=== PATIENT | female | born 1965 | race Caucasian/White ===

== ENCOUNTER 2019-08-05 08:15 | Outpatient (CLI) | payer SELFPAY ==
--- NOTE | 2019-08-05 08:25 | CT_ITS ---
WS: [id number] CT ABDOMEN AND PELVIS WITH CONTRAST HISTORY: COLON CANCER, partial LEFT hemicolectomy. TECHNIQUE: Imaging performed of the abdomen and pelvis with IV contrast. Single phase imaging of the abdomen. Coronal and sagittal reformats are submitted. All CT scans at [facility] use at least one of these dose optimization techniques: automated exposure control; mA and/or kV adjustment per patient size (includes targeted exams where dose is matched to clinical indication); or iterativ e reconstruction. IV CONTRAST: Omnipaque 300; 95 mL IV. Oral contrast: Yes. DLP: 543.49 mGy.cm COMPARISON: 07/28/2018 and 12/20/2017 Lower thorax: Lung bases are clear. Heart is normal size. No hiatal hernia. Liver/biliary system: Normal size with no intrahepatic dilatation. Gallbladder: Normal. No gallstones or wall thickening. No pericholecystic fluid. Pancreas: Normal. Spleen: Normal size spleen with granulomata. Adrenal glands: Normal. Right kidney: Normal. Left kidney: Normal. Aorta: Mild atherosclerosis with no aneurysm. Lymphadenopathy: None. Free fluid: None. GI tract: The appendix is not visualized. Moderate site in the distal colon with no adjacent or recurrent neoplasm. No soft tissue mass or mark opathy. There is moderate fecal retention throughout the colon. No obstruction. Abdominal wall: Fat-containing umbilical hernia. Pelvis: Negative appearing uterus and bladder. No adnexal masses. Bones: Mild increase in lumbar lordosis. Degenerative disc disease is moderate at L5-S1. No osteoblas tic or osteolytic bone disease. CT/CT abdomen pelvis w con* [id number] IMPRESSION: 1. Sigmoid anastomosis and partial LEFT hemicolectomy are stable. No recurrent mass or adenopathy. 2. No metastatic disease to the liver or adrenal glands. 3. Mild constipation.
[2019-08-05] MEDS: iohexol 300 mg/mL 50 mL Btl PO (08:33)
[2019-08-05] MEDS: iohexol 300 mg/mL 100 mL Btl IV (10:15)
== END 2019-08-05 08:16 | disposition home or self-care (01) ==
LOC: RAD 08:20
PROVIDERS: Family Provider Nurse Practitioner Family; PCP Nurse Practitioner Family; Visit Provider Nurse Practitioner Family
DX: Z85.038 Personal history of other malignant neoplasm of large intestine (principal); K59.00 Constipation, unspecified
CPT/HCPCS: 74177

== ENCOUNTER 2019-09-09 14:04 | Outpatient (CLI) | payer SELFPAY ==
--- NOTE | 2019-09-13 14:30 | ONC FU_ITS ---
Dr. Chavez Patient Follow-Up Note Patient: Allyson Barney Unit #: [id number]: 1965 Dicatated By: Taco Chavez M.D.Date of Visit:Sep 09, 2019 Onc Med Follow-up/Prog Note Chief Complaint: Colon cancer. 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 She had presented in 2014 with a several month history of increasing pain in the left lower quadrant area. She had then become aware of some blood in the stool. Eventually the pain became severe enough that she presented to the emergency room, and she was found on CT scan of the abdomen/pelvis to have an obstructing mass in the mid to proximal sigmoid colon. There appeared to be impending large bowel obstruction. The CT also reported presence of associated left lower quadrant pericolonic mesenteric lymph nodes and mildly enlarged inguinal lymph nodes, and there also was evidence of chronic emphysema. She was admitted to the hospital and on 04/20/2015 she underwent sigmoidoscopy followed by open sigmoid colectomy with [id number] colorectal anastomosis. The sigmoidoscopy did confirm an obstructing mass. At laparotomy there was no obvious metastatic involvement. The tumor was able to be resected with no complications. Pathology showed low-grade (grade 1-2/4) infiltrating adenocarcinoma. The tumor was noted to penetrate into but not through the muscularis propria. It measured 5.7 x 3.5 x 1.4 cm. It did show evidence of lymphovascular space invasion. There was no involvement and 14 pericolonic lymph nodes. The portion of resected colon also included an adenomatous polyp measuring 0.8 cm. I had seen her for a post hospital visit on 05/28/2015. She still had somewhat marginal performance status, but she did appear to be recovering from the surgery. With stage I disease, there was no indication for adjuvant therapy. As such, she was followed on observation/expectant management. Surveillance colonoscopy on 08/11/2016 showed no abnormal findings. I had seen her for a follow-up visit on 08/22/2016. At that point she appeared stable clinically, but thereafter she failed to return for follow-up. Her other medical illnesses include COPD, chronic anxiety, and a history of hypoglycemia. She has a history of smoking a half pack of cigarettes daily. She has cut down to 1-2 cigarettes per day. She also has a history of methamphetamine abuse. INTERIM HISTORY: On 07/28/2018 she was admitted to the hospital with suspected bowel obstruction. Her CT abdomen/pelvis at that time showed dilated fluid-filled loops of small bowel, mainly ileum, suspicious for small bowel obstruction. There was a suspected transition point in the left midabdomen. There was new mild intrahepatic biliary ductal dilatation, but there was no obvious metastatic disease. She underwent exploratory laparotomy with lysis of adhesions, resection of Meckel's diverticulum, and incidental appendectomy. The obstruction did appear to be due to adhesions, one side of which was in the area of the previous anastomosis. The other side was more in the mid abdominal area and was associated with the bowel being significantly kinked. There was no evidence of malignancy, and she had an uneventful postoperative recovery. I had then seen her for a follow-up visit on 04/30/2019. She was complaining of significant abdominal pain and constipation, and she was not feeling good generally. I had recommended a restaging CT abdomen/pelvis. That study did not get completed until 08/05/2019. It showed evidence of partial left hemicolectomy with sigmoid anastomosis. There was no recurrent mass or adenopathy and no evidence of other metastatic disease. She was noted to have mild constipation. With those findings, she was treated symptomatically. She continued observation/expectant management for the colon cancer. She is seen for a follow-up visit. She still complains that her energy is very bad. She says that all she wants to do is sleep. She is working a production supervisor off shift, 3 days a week. She has good appetite. She has been gaining weight. She has not had fever. She has some hot flashes and sweating. She has no shortness of breath, cough, or chest pain. Her bowel function has been improved with probiotic. She still has some pain in the left abdominal area, but it is intermittent. She says her bladder function could be better, mainly due to frequent urination. She has no significant joint or bone pain. She occasionally has slight headache. She has no focal neurologic symptoms. Medications: Acetaminophen Capsule Oral PRN, Citalopram Hydrobromide 1 Tablet (of 40 mg) Oral daily, LORazepam 0.5 - 1 Tablet (of 0.5 mg) Oral b.i.d. PRN, Probiotic Capsule Oral Allergies: No Known Allergies. Review of Systems: Constitutional - Her energy level is bad. She states that all she feels like doing is sleeping. She is working 3 nights a week. Her appetite is good and weight is up about 7 pounds from last visit. No fever or chills. She has frequent hot flashes and sweating episodes both during the day and night. ECOG score is 1, ENMT - No sinus congestion/drainage. No mouth sores. No sore throat or difficulty swallowing, Hematologic/Lymphatic - No abnormal bruising or bleeding, Respiratory - No shortness of breath. No cough. No pleuritic pain or hemoptysis, Cardiovascular - No angina pain. No palpitations, Gastrointestinal - No nausea or vomiting. No heartburn or acid reflux. Her bowel function and abdominal pain have improved. No blood in the stool or black stools, Genitourinary (F) - No dysuria or hematuria. She has urinary frequency. No urgency or incontinence, Musculoskeletal - No joint or bone pain, Integumentary - No skin complications, Neurologic - She has occasional headaches. No dizziness. No numbness/paresthesias or other focal neurologic symptoms, Psychiatric - She is taking Ativan and Citalopram for anxiety, which has helped tremendously. No insomnia. Vital Signs: Performed on Sep 09, 2019 14:18 Height - 61.00 in Weight - 128.4 lbs (HIGH) BSA - 1.56 sq.m BMI - 24.26 Temperature - 97.8 F (LOW) Pulse - 58 /min (LOW) Respiration - 17 /min BP - 107/69 mm(hg) O2 Sat - 97 % Pain - 0 Physical Examination: Constitutional - She looks pretty good generally, Eyes - Sclerae nonicteric. Conjunctivae clear, ENMT - There are no lesions noted in the oral cavity, Hematologic/Lymphatic - No cervical, clavicular, or axillary adenopathy, Respiratory - Lungs are clear with some decrease in air movement bilaterally, Cardiovascular - Heart rhythm is regular. There is no murmur, gallop, or rub noted, Abdomen - Soft. Just below the umbilicus there appears to be an area of muscle weakness in the abdominal wall, but not severe enough to constitute an actual herniation. Liver and spleen are not enlarged. There is no abdominal mass or ascites noted. There is no inguinal adenopathy, Extremities - No edema, Neurologic - No focal neurologic deficits noted. Lab/Imaging: Test performed on May 01, 2019 08:57 Sodium 143 mmol/L Potassium 4.3 mmol/L Chloride 102 mmol/L CO2 28 mmol/L Anion Gap 17.3 BUN 21 mg/dL Creatinine 0.8 mg/dL Cr Clearance (Est) 68.3700 mL/min eGFR 74.2 mL/min Glucose 86 mg/dl Calcium 9.8 mg/dL Protein, Total 6.9 g/dL Albumin 5.2 g/dL Globulin 1.7 gm/dL Bilirubin, Total 0.4 mg/dL ALT (SGPT) 33 U/L AST (SGOT) 29 U/L Alkaline Phosphatase 74 U/L WBC 5.8 10 3/uL RBC 4.40 10 6/uL HGB 13.6 g/dl HCT 40.1 % MCV 91.2 fl MCH 30.9 pg MCHC 33.9 g/dl RDW 13.0 % Platelet Count 300 10 3/uL MPV 7.3 fl Neutrophils 3.9 10 3/cmm Lymphocytes 1.5 10 3/uL Monocytes 0.4 10 3/uL Neutrophil % 66.7 % Lymphocyte % 25.6 % Monocyte % 7.7 % CEA 2.0 ng/mL Impression: 1. 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 2. She underwent open sigmoid colectomy with [id number] colorectal anastomosis on 04/20/2015. Her other medical illnesses include: 3. COPD. 4. Chronic anxiety. 5. She has a history of substance abuse (methamphetamine), inactive. 6. She also has a history of hypoglycemia. She has been followed on observation/expectant management following the surgery in March 2015. As of her follow-up visit in 2016 she appeared stable clinically with no evidence of recurrence of the colon cancer. She was then lost to follow-up. In July 2018 she was admitted to the hospital with small bowel obstruction. She underwent exploratory laparotomy for lysis of adhesions, which was repaired cause for the obstruction. She also underwent resection of Meckel's diverticulum and incidental appendectomy. There was no evidence of malignancy. Repeat CT abdomen/pelvis on 08/05/2019 showed evidence of partial left hemicolectomy with sigmoid anastomosis. There was no recurrent mass or adenopathy and no evidence of other metastatic disease. She has been having significant abdominal pain and constipation, but that has improved with probiotic and other symptomatic measures. She continues to have significant fatigue/somnolence. Overall, though, she has been doing pretty well clinically, thus far with no evidence of recurrence of the colon cancer. Plan: She continues on observation/expectant management. I will just plan to see her for a follow-up visit in 1 year. In the meantime, I will check with Dr. Portillo in regard to her surveillance colonoscopy schedule. Signed By: Taco Chavez M.D. <<Signature on File>>
== END 2019-09-09 14:05 | disposition home or self-care (01) ==
PROVIDERS: Family Provider Nurse Practitioner Family; PCP Nurse Practitioner Family; Visit Provider Internal Medicine Medical Oncology
DX: Z08 Encounter for follow-up examination after completed treatment for malignant neoplasm (principal); Z85.038 Personal history of other malignant neoplasm of large intestine; J43.9 Emphysema, unspecified; F41.9 Anxiety disorder, unspecified; F17.210 Nicotine dependence, cigarettes, uncomplicated; F15.11 Other stimulant abuse, in remission; Z79.899 Other long term (current) drug therapy; Z90.49 Acquired absence of other specified parts of digestive tract
CPT/HCPCS: G0463

== ENCOUNTER → 2022-08-25 15:57 | Outpatient (BNVA) | payer SELFPAY | PROVIDERS: Family Provider Nurse Practitioner Family; PCP Nurse Practitioner Family; Visit Provider Nurse Practitioner Family | DX: R10.9 Unspecified abdominal pain (principal) | CPT/HCPCS: 81003 ==

== ENCOUNTER → 2022-08-31 09:11 | Outpatient (BNVA) | payer OTHER, SELFPAY | PROVIDERS: Family Provider Nurse Practitioner Family; PCP Nurse Practitioner Family; Visit Provider Nurse Practitioner Family | DX: R10.9 Unspecified abdominal pain (principal); I10 Essential (primary) hypertension | CPT/HCPCS: 80053; 80061; 82306; 82607; 83735; 85025 ==

== ENCOUNTER 2023-03-29 08:36 | Oncology outpatient (recurring) (ONCR) | payer SELFPAY ==
[2023-03-29 10:45] LABS: Basophils % 0.4 %; Eosinophils # 0.2 10^3/uL (0.0-0.8); Eosinophils % 2.4 %; Hematocrit 39.2 % (36-47); Lymphocytes # 2.2 10^3/uL (0.8-4.8); Lymphocytes % 27.9 %; Mean Corpuscular HGB Conc 33.2 g/dL (30-55); Mean Corpuscular Hemoglobin 29.3 pg (27-33); Mean Corpuscular Volume 88.3 fl (85-98); Mean Platelet Volume 8.3 fL (7.4-10.4); Monocytes # 0.6 10^3/uL (0.2-0.9); Monocytes % 8.1 %; Neutrophils # 4.73 10^3/uL (1.8-7.7); Neutrophils % 60.8 %; Nucleated Red Blood Cells % 0 %; Platelet Count 319 10^3/cmm (157-399); Red Blood Count 4.44 10^6/uL (3.85-5.65); White Blood Count 7.78 10^3/uL (3.29-11.43)
[2023-03-29 11:25] LABS: Carcinoembryonic Antigen 2.5 ng/mL (0.0-4.7)
[2023-03-29 11:36] LABS: Alanine Aminotransferase 28 U/L (0-33); Alkaline Phosphatase 80 U/L (35-105); Anion Gap 13.7 (5-19); Aspartate Amino Transferase 26 U/L (0-32); Blood Urea Nitrogen 14 mg/dL (6-20); Calcium 8.7 mg/dL (8.5-10.5); Carbon Dioxide 23 mmol/L (22-29); Chloride 104 mmol/L (98-107); Globulin 2.5 g/dL (1.3-4.6); Glomerular Filtration Rate 126.3 mL/min (90-130); Glucose 99 mg/dL (65-115); Osmolality Calculated 285 mOsm/kg (285-295); Potassium 3.7 mmol/L (3.5-5.1); Sodium 137 mmol/L (136-145); Total Bilirubin 0.2 mg/dL (0.15-1.2); Total Protein 6.5 g/dL (6.6-8.7)
== END 2023-04-25 23:59 | disposition home or self-care (01) ==
LOC: ONCMED 08:36
PROVIDERS: Family Provider Nurse Practitioner Family; PCP Nurse Practitioner Family; Visit Provider Internal Medicine Medical Oncology
DX: C18.9 Malignant neoplasm of colon, unspecified (principal)
CPT/HCPCS: 36415; 80053; 82378; 85025

== ENCOUNTER 2023-04-21 09:39 | Outpatient (CLI) | payer OTHER, SELFPAY ==
[2023-04-21] MEDS: iohexol 350 mg/mL 500 mL Btl (per mL) IV (09:47)
[2023-04-21] MEDS: iohexol 350 mg/mL 500 mL Btl (per mL) PO (09:47)
--- NOTE | 2023-04-21 11:00 | CT_ITS ---
WS: [id number] CT CHEST, ABDOMEN, AND PELVIS TECHNIQUE: Contrast-enhanced CT of the chest, abdomen, and pelvis with coronal and sagittal reformatt ed images. CLINICAL INFORMATION: Abdominal pain and swelling of abdomen with colon cancer COMPARISON: CT abdomen pelvis 08/05/2019 DLP: 443.[address] scans at [facility] use at least one of these dose optimization techniques: automated e xposure control; mA and/or kV adjustment per patient size (includes targeted exams where dose is matc hed to clinical indication); or iterative reconstruction. CT CHEST: Normal caliber thoracic aorta. Proximal main pulmonary arteries are normal. Normal caliber descending thoracic aorta. No mediastinal or hilar lymphadenopathy. No axillary lymphadenopathy. No acute pulmonary infiltrates. No suspicious pulmonary parenchymal abnormalities. Calcified granulom a RIGHT lower lobe. Mild thoracic curve.Tiny LEFT thyroid nodule measuring [address] ABDOMEN AND PELVIS: Prior postoperative changes partial LEFT hemicolectomy with sigmoid anastomosis. No evidence of recur rent mass or lesion at the anastomosis. No adenopathy in the abdomen or pelvis. Diffuse fatty infiltration of the liver. Mild hepatomegaly. Splenic granulomas. Normal GE junction. N ormal portal vein and splenic vein. Normal pancreas. Normal caliber abdominal aorta. Adrenal glands are normal. Normal renal parenchymal enhancement. No hydronephrosis. Tiny fat-containing umbilical hernia. Vacuum disc phenomenon at L5-S1. IMPRESSION: 1. No evidence of metastatic disease in the chest abdomen or pelvis. 2. No adenopathy in the chest abdomen or pelvis. 3. Prior postoperative changes LEFT hemilaminectomy with sigmoid anastomosis. No evidence of recurre nt mass or lesion. 4. Fecal retention with constipation in the RIGHT colon and transverse colon. 5. Diffuse fatty infiltration of the liver with mild hepatomegaly.
== END 2023-04-21 09:40 | disposition home or self-care (01) ==
PROVIDERS: Family Provider Nurse Practitioner Family; PCP Nurse Practitioner Family; Visit Provider Internal Medicine Medical Oncology
DX: C18.9 Malignant neoplasm of colon, unspecified (principal); R19.00 Intra-abdominal and pelvic swelling, mass and lump, unspecified site; K59.00 Constipation, unspecified; K76.0 Fatty (change of) liver, not elsewhere classified; R16.0 Hepatomegaly, not elsewhere classified; Z90.49 Acquired absence of other specified parts of digestive tract; Z98.0 Intestinal bypass and anastomosis status
CPT/HCPCS: 71260; 74177; Q9967

== ENCOUNTER 2024-04-26 12:52 | Emergency (ER) | payer OTHER, SELFPAY ==
--- NOTE | 2024-04-26 12:54 | XR_ITS ---
WS: [id number] Right knee, 3 views, 04/26/2024 Clinical Data: injury/pain Comparison: None. Findings: No fractures or dislocations are seen. The joint spaces are normal. The patella is intact. The soft t issues are unremarkable. XR/XR knee RT 3V* [id number] Impression: Negative right knee. Kellgren-Jack Classification: grade 0 (none): definite absence of x-ray alem nges of osteoarthritis
[2024-04-26 13:13] VITALS: BP 133/85; PULSE 79; RESP 18; TEMP 36.7; O2SAT 97
--- NOTE | 2024-04-26 13:31 | W.ED.EXTPRO ---
HPI - Extremity Problem General: Chief complaint: Extremity Injury, Lower Stated complaint: rt knee inj Time Seen by Provider: 04/26/24 13:26 Source: patient Mode of arrival: ambulatory Limitations: no limitations History of Present Illness: Patient is a nice 59-year-old female who presents to the ED today with a complaint of right knee pain and swelling over the past several days. Patient states several years ago in [place] she underwent some type of ligamentous repair to the knee. Patient feels like it has intermittently bothered her but over the last several days it has become increasingly painful and swollen. 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 She is still ambulatory here without difficulty or assistance. She has not noticed any swelling to the leg or calf nor does she have pain here. She has not noticed any redness or warmth to the joint or leg. MD Complaint: joint swelling and joint pain Onset (ago): day(s) Pain Consistency: constant Location: right and knee Radiation: none Relieving factors: nothing Exacerbating factors: range of motion and weight bearing Associated symptoms: Reports no associated symptoms; Deny chest pain or fever(s) Related Data Home Medications Medication Instructions Recorded Confirmed naproxen sodium 220 mg tablet 220 mg PO DAILY 04/26/24 04/26/24 (Aleve) Previous Rx's Medication Instructions Recorded methylprednisolone 4 mg tablets in See Rx Instructions PO .COMPLEX 04/26/24 a dose pack (Medrol (Ad)) #21 ea Allergies Allergy/AdvReac Type Severity Reaction Status Date / Time No Known Allergies Allergy Unverified 03/29/23 09:36 Review of Systems Const: Denies: fever(s), chills, body aches, fatigue or malaise Card: Denies: chest pain Resp: Denies: dyspnea, pain on inspiration or hemoptysis Musc: Reports: joint pain (R knee) and joint swelling (R knee); Denies: neck pain, back pain, extremity pain or extremity swelling Neuro: Denies: headache(s), numbness in extremities, weakness in extremities, sensory changes or difficulty walking [facility] ED PFSH: Medical History Anxiety Hypertension Post-menopausal History of colon cancer Surgical History History of appendectomy History of delivery History of colon resection Family History Father Cancer throat Family/Other Diabetes Mother Atrial fibrillation Social History Smoking and tobacco/nicotine status: former use of tobacco/nicotine Quit status (tobacco/nicotine): has quit using Year quit tobacco: 2020 Former quit date comment: Smoked for 30+ years Second hand smoke exposure: Yes Alcohol intake: never Substance/Drug Use: current Substance/Drug use frequency: few times a month Household members: spouse Marital status: Current occupational status: employed Current gender identity: Female Special mely needs: No Physical Exam Const: COMMON NORMALS: no acute distress, average body habitus, patient oriented x3, no limitations, healthy appearing, alert and well nourished Resp: COMMON NORMALS: normal respiratory effort and clear to auscultation bilaterally AUSCULTATION: clear to auscultation bilaterally Cardio: COMMON NORMALS: regular rate and regular rhythm RATE: regular rate RHYTHM: regular rhythm Extremity: COMMON NORMALS: full ROM, capillary refill normal, no clubbing, cyanosis or edema, no calf tenderness and no pedal edema GENERAL: Yes normal exam except as noted RIGHT LOWER EXTREMITY: Yes knee joint (TTP medial R knee; effusion present; normal ROM) Right knee: Yes ROM (normal), Yes neurovascular exam (normal) and Yes other (no erythema/joint warmth) OTHER: no LE swelling/edema or calf pain; NV intact Neuro: COMMON NORMALS: patient oriented x3, moves all extremities, no focal motor deficits, no sensory deficits noted and gait normal SENSORIUM/ORIENTATION: Yes alert Course Vital Signs: Vital signs: Vital Signs Temperature 98.1 F 04/26/24 13:13 Pulse Rate 79 04/26/24 13:13 Respiratory Rate 18 04/26/24 13:13 Blood Pressure 133/85 04/26/24 13:13 Pulse Oximetry 97 04/26/24 13:13 MDM - Extremity (Nontraumatic) Medical Decision Making XR unremarkable. Recommend she continue Aleve and will place on steroids. We have case management set her up with orthopedics for further evaluation of right knee pain and effusion. Return to ED precautions given. Lab Data Radiology Impressions Knee X-Ray 04/26/24 12:54 Impression: Negative right knee. Kellgren-Jack Classification: grade 0 (none): definite absence of x-ray changes of osteoarthritis All radiology interpretation(s) finalized by discharge Discharge Plan Discharge Patient Disposition: Home Clinical Impression: Knee effusion, right Right knee pain Qualifiers: Chronicity: acute Qualified Code(s): M25.561 - Pain in right knee Condition: Stable Prescriptions: New methylprednisolone [Medrol (Ad)] 4 mg tablets,dose pack See Rx Instructions .ROUTE .COMPLEX Qty: 21 0RF Rx Instructions: orally per package directions No Action naproxen sodium [Aleve] 220 mg Tablet 220 mg PO DAILY Discharge Orders: Discharge ED (Routine); Ordered 04/26/24 Ordered By: Tana Benson Referrals: Kaylee Manuel FNP [Primary Care Provider] - Activity Restrictions/Additional Instructions: I recommend you continue taking your Aleve. I would like you to wear your compression bandage as well as ice and elevate the extremity is much as possible. Will place you on prescription steroids. Case management should reach out to you next week to help set you up with your follow-up orthopedic appointment. Coding Level of Care Code ED Clinical Trial Data Manager for Sam David
[2024-04-26 14:06] VITALS: BP 134/87; PULSE 88; O2SAT 100
--- NOTE | 2024-04-29 08:35 | DCPLANNER ---
messaged ortho for er f/u
== END 2024-04-26 14:07 | disposition home or self-care (01) ==
PROVIDERS: Emergency Provider Physician Assistant; PCP Nurse Practitioner Family
DX: M25.561 Pain in right knee (principal); M25.461 Effusion, right knee; I10 Essential (primary) hypertension
CPT/HCPCS: 73562; 99283

== ENCOUNTER 2024-07-14 17:21 | Emergency (ER) | payer OTHER, BC, MEDICAID, SELFPAY ==
[2024-07-14] VITALS (7 sets, daily range): BP systolic 103–151; BP diastolic 78–96; PULSE 67–94; RESP 15–20; TEMP 36.8; O2SAT 96–99; BMI 22.8
--- NOTE | 2024-07-14 17:25 | ECG_ITS ---
[facility] Date: 2024-07-14 Pat Name: Allyson Barney Department: Room: Gender: Female Chart Collector: : 1965 Requested By: Melony Stanton Order Number: [id number] Reading MD: CRUZ DELGADO Measurements Intervals [place] Rate: 70 P: 68 TN: 126 QRS: 68 QRSD: 89 T: 58 QT: 360 QTc: 390 Interpretive Statements SINUS RHYTHM Compared to ECG 12/20/2017 16:07:47 No significant changes Electronically Signed On 07-15-2024 23:13:14 RECORDS SECTION SUPERVISOR by CRUZ DELGADO [email or web address]
--- NOTE | 2024-07-14 18:20 | XRR_ITS ---
PROCEDURE INFORMATION: Exam: XR Chest Exam date and time: 07/14/2024 6:29 PM Age: 59 years old Clinical indication: Pain; Chest pressure; Additional info: Chest pain TECHNIQUE: Imaging protocol: Radiologic exam of the chest. Views: 1 view. COMPARISON: CT chest abdpel w/*[id number] 04/21/2023 10:50 AM FINDINGS: Lungs: No focal consolidation. Pleural spaces: No evidence of pneumothorax. No evidence of pleural effusion. Heart/Mediastinum: Cardiomediastinal silhouette is within normal limits. Bones/joints: No evidence of acute osseous abnormality. XR/XR chest 1V portable [id number] IMPRESSION: 1. No acute cardiopulmonary abnormality.
[2024-07-14 18:34] LABS: Basophils % 0.1 %; Eosinophils # 0.3 10^3/uL (0.0-0.8); Eosinophils % 3.4 %; Hematocrit 36.5 % (36-47); Lymphocytes # 2.3 10^3/uL (0.8-4.8); Lymphocytes % 28.6 %; Mean Corpuscular HGB Conc 33.7 g/dL (30-55); Mean Corpuscular Hemoglobin 29.6 pg (27-33); Mean Corpuscular Volume 87.7 fl (85-98); Mean Platelet Volume 8.7 fL (7.4-10.4); Monocytes # 0.8 10^3/uL (0.2-0.9); Monocytes % 10.3 %; Neutrophils # 4.54 10^3/uL (1.8-7.7); Neutrophils % 57.1 %; Nucleated Red Blood Cells % 0 %; Platelet Count 290 10^3/cmm (157-399); Red Blood Count 4.16 10^6/uL (3.85-5.65); Red Cell Distribution Width 11.9 % (12.1-15.1); White Blood Count 7.95 10^3/uL (3.29-11.43)
[2024-07-14 18:48] LABS: INR 0.89 (0.8-1.2)
[2024-07-14 18:49] LABS: Partial Thromboplastin Time 28.2 SECONDS (23.9-36.7)
[2024-07-14 18:54] LABS: Troponin(5th) Baseline < 6 ng/L (0-10)
[2024-07-14 19:02] LABS: Alanine Aminotransferase 31 U/L (0-33); Albumin Level 4.1 g/dL (3.5-5.2); Alkaline Phosphatase 91 U/L (35-105); Blood Urea Nitrogen 18 mg/dL (8-23); Carbon Dioxide 26 mmol/L (22-29); Chloride 100 mmol/L (98-107); Creatinine Clr Calc Pharmacy 67.4618; Globulin 2.4 g/dL (1.3-4.6); Glomerular Filtration Rate 85.1 mL/min (90-130); Glucose 104 mg/dL (65-115); NT Pro B Type Natriuretic Pept 85 pg/mL (0-125); Osmolality Calculated 282 mOsm/kg (285-295); Sodium 135 mmol/L (136-145); Total Bilirubin 0.2 mg/dL (0.15-1.2); Total Protein 6.5 g/dL (6.6-8.7)
[2024-07-14 19:03] LABS: Aspartate Amino Transferase 27 U/L (0-32)
--- NOTE | 2024-07-14 20:04 | CTR_ITS ---
PROCEDURE INFORMATION: Exam: CT Chest With Contrast; Diagnostic Exam date and time: 07/14/2024 8:14 PM Age: 59 years old Clinical indication: Chest pressure and chest wall pain; Additional info: L lateral chest pain TECHNIQUE: Imaging protocol: Diagnostic computed tomography of the chest with contrast. Radiation optimization: All CT scans at this facility use at least one of these dose optimization techniques: automated exposure control; mA and/or kV adjustment per patient size (includes targeted exams where dose is matched to clinical indication); or iterative reconstruction. Contrast material: OMNI 350; Contrast volume: 100 ml; Contrast route: INTRAVENOUS (IV); COMPARISON: CT chest abdpel w/*[id number] 04/21/2023 10:50 AM RADIATION DOSE METRICS: Total DLP (mGy-cm): 226.81 FINDINGS: Lungs: No focal consolidation. Pleural spaces: No pleural effusion. No pneumothorax. Heart: No cardiomegaly. No pericardial effusion. Mediastinal space: Trachea and central airways are grossly patent. No evidence of mediastinal mass or hematoma. Lymph nodes: No evidence of mediastinal or hilar adenopathy. Vasculature: No aneurysmal dilatation of the thoracic aorta. No evidence of dissection. Though this study is not tailored to evaluate for pulmonary thromboembolism, there is no evidence of PE within limitations of respiratory motion. Bones/joints: No evidence of acute fracture or aggressive osseous lesion. Soft tissues: No fluid collection or hematoma in the superficial soft tissues. Other findings: No evidence of acute abnormality in the upper abdomen. CT/CT chest w con* [id number] IMPRESSION: 1. No evidence of acute abnormality in the chest.
[2024-07-14] MEDS: iohexol 350 mg/mL 500 mL Btl (per mL) IV (20:18)
[2024-07-14 21:02] LABS: Troponin 5 2HR Delta 0.00001 ABS# (0-10)
[2024-07-14] MEDS: ondansetron 2 mg/ML SDV 2 mL 4 MG IVP (21:31)
[2024-07-14] MEDS: ketorolac 30 mg/mL INJ 15 MG IVP (21:31)
[2024-07-14] MEDS: HYDROcodone-acetaminophen 10-325 mg Tablet 1 TAB PO (23:37)
--- NOTE | 2024-07-14 23:51 | ED_ITS ---
HPI - Chest Pain 2 General: Chief Complaint: Chest Pain Stated Complaint: Chest pain Time Seen by Provider: 07/14/24 18:13 Source: patient and family Mode of arrival: ambulatory Limitations: no limitations History of Present Illness: Left chest wall pain started today became very severe. Maybe had some pain a few days before but is primarily left chest wall hurts with deep breaths, hurts with moving of the [facility] standing or sitting. Does hurt while she walks but is not worsened by the exertion. Not that she thinks. Describes it as a sharp pain does not describe it as a pressure. Related Data Previous Rx's Medication Instructions Recorded baclofen 10 mg tablet 10 mg PO BID PRN Chest wall pain 07/14/24 10 days #20 tabs naproxen sodium 550 mg tablet 550 mg PO BID PRN pain 10 days #20 07/14/24 (Anaprox DS) tabs Allergies Allergy/AdvReac Type Severity Reaction Status Date / Time No Known Allergies Allergy Verified 07/14/24 17:31 Review of Systems 2 General: Reports: 10 or more systems reviewed and unremarkable except in HPI and below PFSH ED 2 PFSH: Medical History Anxiety Hypertension Post-menopausal History of colon cancer Surgical History History of appendectomy History of delivery History of colon resection Family History Father Cancer throat Family/Other Diabetes Mother Atrial fibrillation Social History Smoking and tobacco/nicotine status: former use of tobacco/nicotine Quit status (tobacco/nicotine): has quit using Year quit tobacco: 2020 Former quit date comment: Smoked for 30+ years Second hand smoke exposure: Yes Alcohol intake: never Substance/Drug Use: current Substance/Drug use frequency: few times a month Household members: spouse Marital status: Current occupational status: employed Current gender identity: Female Special mely needs: No Physical Exam 2 Const: COMMON NORMALS: no acute distress, average body habitus, patient oriented x3, healthy appearing, alert and well nourished GENERAL APPEARANCE: well kempt and well developed HENMT: COMMON NORMALS: normocephalic, atraumatic, external ears normal and moist oral mucous membranes HEAD & SCALP: normocephalic and atraumatic E XTERNAL EAR: Yes external ears normal Eye: COMMON NORMALS: Equal, round and reactive pupils present, EOMs intact bilaterally and conjunctivae normal CONJUNCTIVA: Yes conjunctivae normal P UPIL: Yes Equal, round and reactive pupils present Neck/C-Spine: COMMON NORMALS: full ROM, no lymphadenopathy and supple Chest: CHEST: Yes Symmetrical chest wall rise and No Surgical scars present (Chest) Resp: COMMON NORMALS: normal respiratory effort, No retractions, No use of accessory muscles and clear to auscultation bilaterally AUSCULTATION: clear to auscultation bilaterally Cardio: COMMON NORMALS: regular rate, regular rhythm, S1 normal heart sound present, S2 normal heart sound present, No gallops present (Cardio), No clicks present (Cardio), No murmurs present (Cardio) and No rub (Cardio) RATE: r egular rate RHYTHM: regular rhythm HEART SOUNDS: S1 normal heart sound present, S2 normal heart sound present and no murmurs PERIPHERAL PULSES: o ther (Radial pulses 2+ and symmetric) GI: COMMON NORMALS: Soft to palpation, non-tender and no masses INSPECTION: No abdominal distension PALPATION: Yes Soft to palpation, No Guarding due to palpation present (GI) and No Rebound tenderness present : COMMON NORMALS: Yes no CVA tenderness BLADDER/KIDNEY EXAM: Yes no CVA tenderness Back/Pelvis: COMMON NORMALS: no CVA tenderness Extremity: COMMON NORMALS: normal to inspection, full ROM, capillary refill normal and no clubbing, cyanosis or edema Neuro: COMMON NORMALS: patient oriented x3 SENSORIUM/ORIENTATION: Yes alert Psych: APPEARANCE: Yes well kempt Skin: COMMON NORMALS: no rashes or lesions noted, no wounds, turgor normal and no jaundice GENERAL SKIN EXAM: no rashes or lesions noted and turgor normal Course 2 Vital Signs: Vital signs: Vital Signs Temperature 98.3 F 07/14/24 17:23 Pulse Rate 73 07/14/24 23:36 Respiratory Rate 15 07/14/24 23:36 Blood Pressure 103/82 07/14/24 23:36 Pulse Oximetry 96 07/14/24 23:36 Oxygen Delivery Me thod Room Air 07/14/24 23:36 MDM - Chest Pain Medical Decision Making X-ray unremarkable, CT of the chest unremarkable as well as radiology read concurs on both. Troponin is negative x 2. Patient has pleurisy will be discharged. I reviewed the results with patient and her friend. Pain is resolved after treatment. Differential Diagnosis Likely acute myocardial infarction Medical Records I reviewed the patient's medical records. Lab Data I reviewed the patient's lab results. 07/14/24 18:26 07/14/24 18:26 Radiology Impressions Chest X-Ray 07/14/24 18:20 IMPRESSION: 1. No acute cardiopulmonary abnormality. Chest CT 07/14/24 20:04 IMPRESSION: 1. No evidence of acute abnormality in the chest. Laboratory Results WBC 7.95 10^3/uL (3.29-11.43) 07/14/24 18: RBC 4.16 10^6/uL (3.85-5.65) 07/14/24 18: Hgb 12.30 g/dL (11.27-16.99) 07/14/24 18: Hct 36.5 % (36-47) 07/14/24 18: MCV 87.7 fl (85-98) 07/14/24 18: MCH 29.6 pg (27-33) 07/14/24 18: MCHC 33.7 g/dL (30-55) 07/14/24 18: RDW 11.9 % (12.1-15.1) L 07/14/24 18: Plt Count 290 10^3/cmm (157-399) 07/14/24 18: MPV 8.7 fL (7.4-10.4) 07/14/24 18: Neut % (Auto) 57.1 % 07/14/24 18: Lymph % (Auto) 28.6 % 07/14/24 18: [facility] [place] [facility] % (Auto) 10.3 % 07/14/24 18: Eos % (Auto) 3.4 % 07/14/24 18: Baso % (Auto) 0.1 % 07/14/24 18: Neut # (Auto) 4.54 10^3/uL (1.8-7.7) 07/14/24 18: Lymph # (Auto) 2.3 10^3/uL (0.8-4.8) 07/14/24 18:26 [facility] # (Auto) 0.8 10^3/uL (0.2-0.9) 07/14/24 18: Eos # (Auto) 0.3 10^3/uL (0.0-0.8) 07/14/24 18: Baso # (Auto) 0.0 10^3/uL (0.0-0.1) 07/14/24 18: Nucleated RBC % (auto) 0 % 07/14/24 18: Nucleated RBCs # 0.0 /100WBC 07/14/24 18: PT 12.70 SECONDS (12.1-14.9) 07/14/24 18: INR 0.89 (0.8-1.2) 07/14/24 18: APTT 28.2 SECONDS (23.9-36.7) 07/14/24 18: Sodium 135 mmol/L (136-145) L 07/14/24 18: Potassium 4.0 mmol/L (3.5-5.1) 07/14/24 18: Chloride 100 mmol/L (98-107) 07/14/24 18: Carbon Dioxide 26 mmol/L (22-29) 07/14/24 18: Anion Gap 13.0 (5-19) 07/14/24 18:26 BUN 18 mg/dL (8-23) 07/14/24 18: Creatinine 0.7 mg/dL (0.5-0.9) 07/14/24 18: GFR Calculation 85.1 mL/min (90-130) L 07/14/24 18: Glucose 104 mg/dL (65-115) 07/14/24 18: Calculated Osmolality 282 mOsm/kg (285-295) L 07/14/24 18: Calcium 9.0 mg/dL (8.5-10.5) 07/14/24 18: Total Bilirubin 0.2 mg/dL (0.15-1.2) 07/14/24 18: AST 27 U/L (0-32) 07/14/24 18: ALT 31 U/L (0-33) 07/14/24 18: Alkaline Phosphatase 91 U/L (35-105) 07/14/24 18:26 Troponin T Baseline < 6 ng/L (0-10) 07/14/24 18:26 Troponin T 120 Minute 6.00 ng/L (0-10) 07/14/24 20:38 Delta Troponin T 0.35134 ABS# (0-10) 07/14/24 20:38 NT-Pro-B Natriuret Pep 85 pg/mL (0-125) 07/14/24 18:26 Total Protein 6.5 g/dL (6.6-8.7) L 07/14/24 18:26 Albumin 4.1 g/dL (3.5-5.2) 07/14/24 18:26 Globulin 2.4 g/dL (1.3-4.6) 07/14/24 18:26 All radiology interpretation(s) finalized by discharge ED provider radiology interpretation(s): See MDM Discharge Plan Discharge Patient Disposition: Home Clinical Impression: Acute pleurisy without pleural effusion, Acute chest wall pain Condition: Stable Prescriptions: New baclofen 10 mg tablet 10 mg PO BID PRN (Reason: Chest wall pain) 10 Days Qty: 20 0RF naproxen sodium [Anaprox DS] 550 mg tablet 550 mg PO BID PRN (Reason: pain) 10 Days Qty: 20 0RF Discontinued naproxen sodium [Aleve] 220 mg Tablet 220 mg PO DAILY methylprednisolone [Medrol (Ad)] 4 mg tablets,dose pack See Rx Instructions .ROUTE .COMPLEX Qty: 21 0RF Rx Instructions: orally per package directions Discharge Orders: Discharge ED (Routine); Ordered 07/14/24 Ordered By: Fareed Jose Referrals: Kaylee Manuel FNP [Primary Care Provider] - Patient Instructions: Pleurisy (ED) Coding Level of Care Code ED Returned Materials Inspector for Sam David
[2024-07-15 00:33] VITALS: BP 144/79; PULSE 69; RESP 14; O2SAT 96
== END 2024-07-15 00:34 | disposition home or self-care (01) ==
PROVIDERS: Emergency Provider Emergency Medicine; PCP Nurse Practitioner Family
DX: R09.1 Pleurisy (principal); R07.89 Other chest pain; Z87.891 Personal history of nicotine dependence; I10 Essential (primary) hypertension; Z85.038 Personal history of other malignant neoplasm of large intestine
CPT/HCPCS: 36415; 71045; 71260; 80053; 83880; 84484; 85025; 85610; 85730; 93005; 96374; 96375; 99285; J1885; J2405